=== PATIENT | male | born 1960 | race African-American/Black ===

== ENCOUNTER 2018-09-18 20:17 | Emergency (ER) | payer MEDICARE, MEDICAID ==
[~2018-09-18] VITALS: Ht 185.4 cm; Wt 117.9 kg
[2018-09-18 21:13] VITALS: BP 124/63
== END 2018-09-18 21:21 ==
LOC: EDBD 20:17 → ER 20:28
DX: Z02.89 Encounter for other administrative examinations (principal); R51 Headache; M54.2 Cervicalgia; J45.909 Unspecified asthma, uncomplicated; E11.9 Type 2 diabetes mellitus without complications; I10 Essential (primary) hypertension; Z88.6 Allergy status to analgesic agent